=== PATIENT | female | born 1965 | race Two or more races ===

== ENCOUNTER 2017-11-28 06:05 | Day surgery (SDC) | payer OTHER ==
[~2017-11-28] VITALS: Ht 165.1 cm; Wt 81.2 kg
[2017-11-28] MEDS ORDERED: OMEP20TC12 PO (08:08)
[2017-11-28] MEDS ORDERED: ENAL20TA6 PO (08:08)
[2017-11-28] MEDS ORDERED: IBUPROFEN 800 MG TAB PO PRN (08:30)
[2017-11-28] MEDS ORDERED: ONDANSETRON 4 MG/2 ML VIAL IVP PRN ×3 (08:30→10:35)
[2017-11-28] MEDS ORDERED: MORPHINE SULFATE 4 MG/ML SYR IM/IVP PRN ×2 (08:30)
[2017-11-28] MEDS ORDERED: ACETAMINOPHEN/CODEINE 300/30MG 1 TAB PO PRN ×2 (08:30)
[2017-11-28] MEDS ORDERED: PROPOFOL 200 MG/20 ML VIAL IV ONE (10:21)
[2017-11-28] MEDS ORDERED: SEVOFLURANE 250 ML BTL INH ONE (10:21)
[2017-11-28] MEDS ORDERED: LIDOCAINE 2% 100 MG/5 ML SYR IVP ONE (10:21)
[2017-11-28] MEDS ORDERED: MIDAZOLAM 2 MG/2 ML VIAL ONE (10:28)
[2017-11-28] MEDS ORDERED: HYDROmorphone 1 MG/ML AMP IVP PRN (10:35)
== END 2017-11-28 12:15 | disposition home or self-care (01) ==
LOC: MDS 06:05 → MMU 06:09 → MDS 12:15
PROVIDERS: ATTEND Obstetrics & Gynecology
DX: N95.0 Postmenopausal bleeding (principal); E66.9 Obesity, unspecified; E11.22 Type 2 diabetes mellitus with diabetic chronic kidney disease; D64.9 Anemia, unspecified; I25.10 Atherosclerotic heart disease of native coronary artery without angina pectoris; I63.9 Cerebral infarction, unspecified; I12.9 Hypertensive chronic kidney disease with stage 1 through stage 4 chronic kidney disease, or unspecified chronic kidney disease; N18.9 Chronic kidney disease, unspecified; J45.909 Unspecified asthma, uncomplicated; K21.9 Gastro-esophageal reflux disease without esophagitis; F03.90 Unspecified dementia, unspecified severity, without behavioral disturbance, psychotic disturbance, mood disturbance, and anxiety; Z88.6 Allergy status to analgesic agent; Z88.8 Allergy status to other drugs, medicaments and biological substances; Z79.899 Other long term (current) drug therapy; Z98.890 Other specified postprocedural states; Z87.891 Personal history of nicotine dependence
CPT/HCPCS: 58120; 71045; 93005; J2001; J2250; J2704; J7120; Q0092